=== PATIENT | female | born 1970 | race Caucasian/White ===

== ENCOUNTER 2018-06-16 08:06 | Day surgery (SDC) | payer MEDICAID ==
[2018-06-15 15:43] VITALS: BMI 32.0
[~2018-06-16] VITALS: Ht 149.9 cm; Wt 99.9 kg
[2018-06-16] VITALS (16 sets, daily range): BP systolic 134–181; BP diastolic 67–92; PULSE 72–98; RESP 12–18; Ht 149.9 cm; Wt 99.9 kg
[~2018-06-16 08:06] MED LIST: CEFAZOLIN 2 GM/50 ML (PMX) 50 ML IVPB ONE; SOD CHLORIDE 0.9% 1,000 ML IV SCH
--- NOTE | 2018-06-16 09:21 | PREAC ---
Date/Time of Note Date/Time of Note DATE: 06/16/18 TIME: 09:20 Anesthesia Eval and Record Evaluation Time Pre-Procedure Interview DATE: 06/16/18 TIME: 09:20 Age 48 Sex female NPO: 8 hrs Preoperative diagnosis right breast mass Planned procedure excision of right breast mass Past Medical History Past Medical History: Includes GI: Morbid obesity Surgery & Anesthesia Issues No known issue Meds Anticoagulation: No Beta Tye within 24 hr: No Reason Beta Tye not given: Pt. not on B-Tye No Active Prescriptions or Reported Meds Current Medications Sodium Chloride 1,000 ml @ 75 mls/hr [id number] IV ; Start 06/16/18 at 08:00; Stop 06/16/18 at 21:19 Meds reviewed: Yes Allergies Coded Allergies: No Known Allergy (Unverified , 06/16/18) Allergies Reviewed: Yes Labs/Studies Labs Reviewed: Reviewed by anesthesiologist test: Negative Pre-procedure Exam Last vitals Vital Signs Date Temp Pulse Resp B/P (MAP) Pulse Ox O2 O2 Flow FiO2 Time Delivery Rate 06/16/18 98.2 87 16 146/73 100 Room Air 09:13 (97) Airway: Adequate mouth opening, Adequate thyromental dist Mallampati: Mallampati II Teeth: Normal Lung: Normal Heart: Normal ASA Physical Status ASA physical status: 3 Emergency: None Planned Anesthetic General/MAC: LMA Planned Pain Management Parenteral pain med Pre-operative Attestations Prior to commencing anesthesia and surgery, the patient was re-evaluated, there was verification of: *The patient's identity *The results of appropriate recent lab work and preoperative vital signs *The above evaluation not changing prior to induction *Anesthetic plan, risk benefits, alternative and complications discussed with patient/family; questions answered; patient/family understands, accepts and wishes to proceed. Word Processor Technician used LARS ESCALERA MD Jun 16, 2018 09:20
[2018-06-16] MEDS ORDERED: DIPHENHYDRAMINE 50 MG INJ IV PRN (10:00)
[2018-06-16] MEDS ORDERED: OXYCODONE/ACETAMINOPHEN (5/325) TAB PO PRN (10:00)
[2018-06-16] MEDS ORDERED: MEPERIDINE 25 MG INJ IV PRN (10:00)
[2018-06-16] MEDS ORDERED: FENTAnyl 50 MCG/ML VIAL IV PRN (10:00)
[2018-06-16] MEDS ORDERED: HYDROmorphONE 1 MG/5 ML IV SYRINGE IV PRN ×3 (10:00)
[2018-06-16] MEDS ORDERED: ONDANSETRON 4 MG INJ IV PRN (10:00)
[2018-06-16] MEDS ORDERED: PROCHLORPERAZINE 10 MG INJ IV PRN (10:00)
[2018-06-16] MEDS ORDERED: MIDAZOLAM 1 MG/ML 2 ML INJ ONE (10:01)
[2018-06-16] MEDS ORDERED: CEFAZOLIN 1 GM INJ ONE (10:09)
[2018-06-16] MEDS ORDERED: PHENYLephrine (100 MCG/ML) 5ML SYG ONE ×2 (10:09→10:42)
[2018-06-16] MEDS ORDERED: PROPOFOL 20 ML ONE (10:09)
[2018-06-16] MEDS ORDERED: LIDOCAINE 2% (SDV) 5 ML INJ ONE (10:09)
[2018-06-16] MEDS ORDERED: DEXAMETHASONE 4 MG/ML 5 ML INJ ONE (10:17)
[2018-06-16] MEDS ORDERED: FAMOTIDINE 20 MG INJ ONE (10:17)
[2018-06-16] MEDS ORDERED: SEVOFLURANE 15 MIN ONE (10:17)
[2018-06-16] MEDS ORDERED: ONDANSETRON 4 MG INJ ONE (10:17)
[2018-06-16] MEDS ORDERED: PROPOFOL 200 MG INJ ONE (10:17)
[2018-06-16] MEDS ORDERED: FENTAnyl 50 MCG/ML VIAL ONE (10:19)
--- NOTE | 2018-06-16 10:43 | SIPON ---
Date/Time of Note Date/Time of Note DATE: 06/16/18 TIME: 10:42 Operative Report Preoperative Diagnosis Right breast mass Postoperative Diagnosis Same Operation/Procedure Performed Excision of right breast mass Surgeon see signature line assistant director of plant operations Dr Henson Anesthesia: general Estimated blood loss: 10 - 50 ml's Transfusion Required none Specimen Right breast mass Grafts/Implants none Complications none FELICIA PICKETT MD Jun 16, 2018 10:43
--- NOTE | 2018-06-16 11:16 | PAC ---
Date/Time of Note Date/Time of Note DATE: 06/16/18 TIME: 11:15 Post-Anesthesia Notes Post-Anesthesia Note Last documented vital signs Vital Signs Date Temp Pulse Resp B/P (MAP) Pulse Ox O2 O2 Flow FiO2 Time Delivery Rate 06/16/18 98.2 11:05 06/16/18 87 16 146/73 100 Room Air 09:13 (97) Activity: WNL Respiratory function: WNL Cardiovascular function: WNL Mental status: Baseline Pain reasonably controlled: Yes Hydration appropriate: Yes Nausea/Vomiting absent: Yes Comments BP: 130/84 HR: 93 RR: 15 T: 98.2 SaO2: 100% LARS ESCALERA MD Jun 16, 2018 11:16
--- NOTE | 2018-06-16 11:20 | OPR ---
DATE OF OPERATION: 06/16/2018 PREOPERATIVE DIAGNOSIS: Large right breast mass. POSTOPERATIVE DIAGNOSIS: Large right breast mass. OPERATION PERFORMED: Excision of right breast mass. ANESTHESIA: General. ANESTHESIOLOGIST: Dr. De La Cruz. HYDROMETEOROLOGICAL TECHNICIAN: Dr. Henson. INDICATIONS FOR PROCEDURE: The patient is a 48-year-old female who presented with an enlarging mass at the right breast 9 o'clock position. It was at least 5 cm in diameter. Biopsy confirmed a fibroe pithelial lesion, favor phyllodes tumor. The patient was counseled on the risks versus benefits of e xcision. She consented and was scheduled for surgery. DESCRIPTION OF PROCEDURE: The patient brought to the operating theater, placed under general anesthe shawn. The right breast was prepped and draped in usual sterile fashion. A periareolar incision was m suhas from the 12 o'clock location through the 9 o'clock location to the 6 o'clock location. Subcutane ous tissue was dissected with cautery. The breast parenchyma was then dissected down to the region o f the very large palpable mass. Using a gloved finger, this large mass was then enucleated and eleva andry out of the breast. The residual connective tissue attachments were then transected with cautery. The mass was removed and sent for permanent pathologic analysis. The wound was irrigated. Residua l bleeding was controlled with cautery. The skin was then reapproximated with a deep dermal layer of 4-0 Vicryl sutures in interrupted fashion, followed by final skin approximation with 5-0 PDS sutures in subcuticular fashion and Dermabond was applied. The patient tolerated the procedure well. Estim ated blood loss was 20 mL. There were no complications. The patient was transported in stable condi tion to recovery room where circumferential compression dressing was applied. Dictated By: FELICIA CARRASQUILLO/DAVID Conf#: [id number] DID#: [id number]
[2018-06-16] MEDS ORDERED: hydrALAzine 20 MG INJ ONE (11:55)
== END 2018-06-16 12:36 | disposition home or self-care (01) ==
LOC: SDS 08:06
PROVIDERS: ATTEND Surgery Surgical Oncology
DX: D24.1 Benign neoplasm of right breast (principal)
CPT/HCPCS: 80053; 84703; 85025; 85610; 85730; 88307; J0360; J0690; J1100; J1170; J2250; J2370; J2405; J3010